=== PATIENT | female | born 1935 | race Caucasian/White ===

== ENCOUNTER → 2017-03-07 | Outpatient (CLI) | payer MEDICARE, BC ==
[~2017-03-07] MED LIST: APIX2.5T PO; CALC1TAB12 PO; LEVO.075 PO; TYLE325T PO
[2017-03-07 10:49] LABS: AUTOMATED NEUTROPHIL # 4.6 TH/MM3 (1.8-7.7); BASOPHIL % 0.5 % (0.0-2.0); EOSINOPHIL # 0.1 TH/MM3 (0-0.4); EOSINOPHIL % 1.1 % (0.0-4.0); HEMO FLAGS DIFF FINAL; LYMPH % 22.1 % (9.0-44.0); LYMPHOCYTE # 1.5 TH/MM3 (1.0-4.8); MEAN CELL VOLUME 94.6 FL (80.0-100.0); MEAN CORPUSCULAR HEMOGLOBIN 31.9 PG (27.0-34.0); MEAN CORPUSCULAR HGB CONC 33.7 % (32.0-36.0); MONO % 9.1 % (0.0-8.0); NEUT % 67.2 % (16.0-70.0); PLATELET COUNT 174 TH/MM3 (150-450); RED BLOOD COUNT 4.76 MIL/MM3 (4.00-5.30); RED CELL DISTRIBUTION WIDTH 13.4 % (11.6-17.2); WHITE BLOOD COUNT 6.8 TH/MM3 (4.0-11.0)
[2017-03-07 11:19] LABS: ANION GAP 9 MEQ/L (5-15); AST (GOT) 18 U/L (15-37); BICARBONATE 27.2 MEQ/L (21.0-32.0); BLOOD UREA NITROGEN 13 MG/DL (7-18); CHLORIDE 103 MEQ/L (98-107); GLOMERULAR FILTRATION RATE 74 ML/MIN (>89); GLUCOSE,FASTING 100 MG/DL (74-99); POTASSIUM 4.6 MEQ/L (3.5-5.1); SODIUM (NA) 139 MEQ/L (136-145)
[2017-03-07 11:20] LABS: ALT (GPT) 18 U/L (10-53); THYROXINE (T4) 11.5 MCG/DL (4.8-13.9)
[2017-03-07 11:30] LABS: ALKALINE PHOSPHATASE 70 U/L (45-117); HDL CHOLESTEROL 68.9 MG/DL (40.0-60.0); LDL CHOLESTEROL 103 MG/DL (0-99); TOTAL BILIRUBIN ADULT 0.8 MG/DL (0.2-1.0)
[2017-03-07 15:31] LABS: HEMOGLOBIN A1b 0.8 %; HEMOGLOBIN Ao 86.2 %; HEMOGLOBIN F 0.8 %; HEMOGLOBIN LA1C 1.9 %; HEMOGLOBIN P3 3.4 %
== END ==
LOC: CPRE 09:50
PROVIDERS: ATTEND Internal Medicine
DX: R73.09 Other abnormal glucose (principal); E03.9 Hypothyroidism, unspecified; E78.00 Pure hypercholesterolemia, unspecified
CPT/HCPCS: 80053; 80061; 83036; 84436; 84443; 85025

== ENCOUNTER → 2017-03-07 | Outpatient (CLI) | payer MEDICARE, OTHER, BC ==
[2017-03-07 11:01] LABS: INTERNATIONAL NORMALIZED RATIO 0.9 RATIO; PROTHROMBIN TIME - PATIENT 10.4 SEC (9.8-11.6)
[2017-03-07 11:20] LABS: BACTERIA, URINE MOD /hpf; BLOOD, URINE TRACE (NEG); COMMENT (UR) CULTURE INDICATED; CULTURE IF INDICATED CULTURE INDICATED; GLUCOSE,URINE NEG (NEG); KETONE, URINE NEG (NEG); NITRITE,URINE POS (NEG); SQUAMOUS EPITHELIAL CELL URINE 2 /hpf (0-5); URINE COLOR LIGHT-YELLOW (YELLW/STRAW)
--- NOTE | 2017-03-07 11:42 | RADRPT ---
EXAM DATE/TIME: 03/07/2017 11:07 [place] COMPARISON: No previous studies available for comparison. INDICATIONS : Evaluate for pneumonia, pneumothorax, and communicable disease. Preop for knee arthroscopy. MEDICAL HISTORY : Pulmonary emboli. SURGICAL HISTORY : None. ENCOUNTER: Initial ACUITY: 1 day PAIN SCORE: 0/10 LOCATION: Bilateral chest FINDINGS: PA and lateral views of the chest demonstrate right basilar subsegmental atelectasis versus scarring. Left lung clear. Heart normal in size. The cardiomediastinal contours are unremarkable. Osseous str uctures are intact. CONCLUSION: Right basilar subsegmental atelectasis. Karthik Huff MD on March 07, 2017 at 11:33 Board Certified Radiologist. This report was verified electronically.
--- NOTE | 2017-03-08 21:09 | EKG ---
Date Performed: 03/07/2017 Time Performed: 10:49:06 PTAGE: 81 years EKG: Sinus rhythm WITH OCCASIONAL VENTRICULAR PREMATURE COMPLEXES MINIMAL VOLTAGE CRITERIA FOR LVH, CONSIDER NORMAL VA RIANT BORDERLINE ECG NO PREVIOUS TRACING DOCTOR: Rod Zavala Interpretating Date/Time 03/08/2017 21:08:29
== END ==
LOC: CPRE 09:39
PROVIDERS: ATTEND Orthopaedic Surgery
DX: Z01.810 Encounter for preprocedural cardiovascular examination (principal); Z01.811 Encounter for preprocedural respiratory examination; Z01.812 Encounter for preprocedural laboratory examination; Z79.01 Long term (current) use of anticoagulants; S83.241A Other tear of medial meniscus, current injury, right knee, initial encounter; X58.XXXA Exposure to other specified factors, initial encounter; R94.31 Abnormal electrocardiogram [ECG] [EKG]; R82.99 Other abnormal findings in urine; R73.09 Other abnormal glucose; E03.9 Hypothyroidism, unspecified; E78.00 Pure hypercholesterolemia, unspecified
CPT/HCPCS: 36415; 71020; 80053; 80061; 81001; 83036; 84436; 84443; 85025; 85610; 86403; 87086; 93005

== ENCOUNTER → 2017-03-18 | Day surgery (SDC) | payer MEDICARE, OTHER, BC ==
--- NOTE | 2017-03-08 17:32 | MH ---
cc: MABLE REYES M.D. DATE OF ADMISSION 03/18/2017 ADMISSION DIAGNOSIS Medial and lateral meniscus tear of the right knee, chondromalacia right knee, effusion right knee, synovitis right knee and pain of the right knee. HISTORY OF THE PRESENT ILLNESS The patient is an 81-year-old white female who has experienced pain of the right knee of longstanding duration. Her history extends back almost 6 years at which time she sustained a twisting stress of her right knee while shopping and living in the [facility]. She did undergo orthopedic evaluation at that time and suggests she was diagnosed as having a meniscal type injury for which she did receive a cortisone injection and noted complete resolution of her pain thereafter. Over the following years she seemed be doing reasonably well until the past few months when she was stepping off of a curb and sustained a sharp pain about the medial aspect of her knee with some degree of swelling associated. She conformed to conservative management which included ice application and Tylenol for pain relief. Because her symptoms persisted she was later seen by her primary care physician Dr. Lyle who ordered an MRI scan of the right knee the results of which identified a horizontal tear involving the posterior horn and body of the medial meniscus with body remnant being subluxed to the medial joint margin as well as extensive degenerative tearing and maceration of radial configuration of the posterior horn and body of the lateral meniscus. A partially bipartite patella with only minimal localized chondromalacia, mild to moderate chondral thinning throughout the medial and lateral compartments and moderate effusion with moderate synovitis. The patient was subsequently seen by the undersigned physician at which time she reported lingering soreness about her right knee which limited her routine activities which had included playing golf and conforming to yoga exercises. She had been limiting her use of Tylenol reporting that she was on Eliquis for history of pulmonary embolus as related to a history of Leiden V deficiency factor. At the time of her original office evaluation findings and treatment options were reviewed. The pros and cons of continuing with conservative management versus operative intervention that would involve arthroscopic surgery was outlined with emphasis being made that the decision to proceed with surgery would be left entirely to the patient's discretion. The patient considered her options in this regard and later returned to the office in follow-up disposition indicating that she was desirous of proceeding with surgery as had previously been discussed and in compliance with her wishes she has been scheduled for admission at this time in order that the above be accomplished. PAST MEDICAL HISTORY Her past medical history, hospitalizations and surgeries have included: 1. Bilateral bunionectomy. 2. Partial left mastectomy followed by radiation therapy. 3. Left ovarian cyst excision with postoperative complication involving hemorrhage that did require additional surgery/ 4. Tonsillectomy. 5. Bilateral cataract excision with intraocular lens implants. 6. Colonoscopy. 7. Medical management for pulmonary embolus. 8. Insertion of a bladder sling. The patient's medical illnesses include: 1. Hypothyroidism. 2. Factor V Leiden deficiency. 3. Osteopenia. 4. History of aortic aneurysm. MEDICATIONS Her current medications: 1. Synthroid 75 mcg daily. 2. Eliquis 2.5 mg twice daily. 3. Calcium 600 mg daily. 4. Vitamin D 1000 units daily. 5. B12 1000 mcg two times weekly. 6. Tylenol p.r.n. ALLERGIES The patient denies any known drug allergies. REVIEW OF SYSTEMS She wears glasses occasionally for reading purposes. She has had a history of migraine headaches but this has subsequently resolved. No seizure or syncope. No sinus congestion or epistaxis. Auditory acuity intact. Occasional tinnitus. No bleeding gums or dysphagia. Denies cough, shortness of breath or tuberculosis. There is a history of pneumonia. No angina or heart disease. Her appetite is good. Bowel movements regular. No hepatitis, gallbladder disease, ulcers or hemorrhoids. She has had urinary tract infection. No kidney stones. No fractures. No psychiatric illness. Her remaining review of systems is unremarkable and noncontributory. FAMILY HISTORY The patient has been a for 11 years. Her at 71 years of age with a history of liver cancer. She has four sons and one daughter all described as being in good health. Family history is positive for hypertension, diabetes, heart disease, lung, breast and colon cancer. 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 She denies active use of tobacco for more than 30 years but had been a less than one-pack per day user for approximately 20 years prior to that time. Ethanol consumption on an occasional basis. PHYSICAL EXAMINATION VITAL SIGNS: Height 5 feet 4 inches, weight 175 pounds. GENERAL: An alert, oriented, responsive 81-year-old white female who sits quietly upon examination table with no obvious distress. HEENT: Pupils are equally round and reactive to light. Extraocular movements full. Sclerae clear. External nares clear. External auditory canals clear. Dental intact. Mucous membranes pink and moist. Pharynx clear. NECK: Supple. Active range of motion without appreciable pain. Carotid pulse palpable bilaterally. Trachea midline. Thyroid without enlargement. LUNGS: Clear to auscultation and percussion. No CVA tenderness. No discomfort throughout the dorsal lumbar spine. HEART: Regular rhythm. No murmur or gallop. ABDOMEN: Soft, nontender. Bowel sounds present. PELVIC: Per primary care physician. EXTREMITIES: Right knee there is a fullness about the right knee consistent with some redundancy of soft tissue and mild intra-articular effusion. Minimal medial joint line tenderness. Apprehension and compression sign negative. Limited mobility towards the extreme of flexion with minimal discomfort associated, no crepitation or instability. No collateral ligamentous laxity. Liss test and drawer sign negative. Pivot shift and Matthew sign are positive for medial compartment pain. Straight-leg raising negative at 80 degrees. Satisfactory mobility of the right hip with no associated pain. Independent gait. NEUROLOGIC: Cranial nerves II-XII grossly intact. IMPRESSION Medial and lateral meniscus tear of the right knee, chondromalacia right knee, effusion right knee, synovitis right knee, pain right knee. PLAN Arthroscopic surgery and possible arthrotomy right knee. The nature of the planned surgical procedure, the potential complications and risks associated, the expectations of surgery and the consent form were thoroughly reviewed with the patient prior to admission to the hospital. Amy has indicated her full understanding regarding all of the above and given consent to proceed with treatment as outlined. Medical evaluation and clearance for surgery will be completed by her primary care physician Dr. Bruna Lyle. MD MILES Schwartz/DARREN /4:42 PM /4:54 PM
[~2017-03-18] VITALS: Ht 162.6 cm; Wt 79.1 kg
[~2017-03-18] MED LIST changes: +ACETAMINOPHEN 1000 MG/100 ML 100 ML IV ONE; +ACETAMINOPHEN/HYDROcodone 325 MG/5 MG TAB PO PRN; +CHLORHEXIDINE GLUCONATE 2 % 1 PACK (2 CLOTHS) TOPICAL PRN; +DEXAMETHASONE SOD PHOS 4 MG/ML VIAL IV ONE; +DO NOT ADM ANY ANTICOAGULANT DRUGS PRN; +FAMOTIDINE 20 MG/2 ML VIAL ONE; +INSULIN HUMAN REGULAR 1,000 UNITS/10 ML VIAL SQ PRN; +KETOROLAC TROMETHAMINE 30 MG/ML (IVP) VIAL IV PUSH ONE; +LACTATED RINGER'S 1000 ML INJ 1,000 ML IV ONE; +LACTATED RINGER'S 1000 ML IV PRN; +LIDOCAINE HCL 1% PF 5 ML AMPULE OTHER ONE; +LIDOCAINE HCL 2% 50 ML VIAL ONE; +METOPROLOL TARTRATE 25 MG TAB PO PRN; +MIDAZOLAM HCL 2 MG/2 ML VIAL IV ONE; +MORPHINE SULFATE 8 MG/ML INJ IM PRN; +ONDANSETRON HCL 4 MG/2 ML VIAL IV PUSH ONE; +POVIDONE IODINE 5% (ANTISEPSIS KIT) 4 APPLICATIONS EACH NARE PRN; +POVIDONE IODINE 7.5% SCRUB 118 ML BOTTLE TOPICAL SCH; +PROMETHAZINE INJ 25 MG/ML VIAL IM PRN; +PROPOFOL 200 MG/20 ML AMP IV ONE; +SODIUM CHLORID 0.9% 500 ML IV PRN; +TRIAMCINOLONE ACETONIDE 40 MG/ML VIAL ONE; +ceFAZolin 2 GM PREMIX 50 ML IV SCH; +ePHEDrine/NS 25 MG/5 ML SYR IV ONE
[2017-03-18 09:25] VITALS: BP 117/61; PULSE 75; RESP 18; O2SAT 98
--- NOTE | 2017-03-18 16:57 | MP ---
cc: MABLE WILLSON DATE OF SURGERY 03/18/17 PREOPERATIVE DIAGNOSIS 1. Medial and lateral meniscus tear of the right knee 2. Chondromalacia right knee 3. Effusion right knee 4. Synovitis right knee 5. Pain of the right knee. POSTOPERATIVE DIAGNOSIS 1. Medial and lateral meniscus tear of the right knee 2. Chondromalacia right knee 3. Effusion right knee 4. Synovitis right knee 5. Pain of the right knee. PROCEDURE 1. Partial medial and lateral meniscectomy right knee 2. Chondroplasty of the patellofemoral joint and the medial compartment. SURGEON Dev Willson MD ANESTHESIA General by LMA FORMAT Following induction of satisfactory general anesthesia by LMA insertion as completed per the Department of Anesthesia, examination of the right knee did reveal a satisfactory range of motion with no appreciable ligamentous instability. The extremity proper was positioned in the events assistant knee beverly, prepped with Betadine solution and draped into a sterile field in the routine manner. Prior to initiation of the actual procedure, the standard time-out protocol was completed, all parameters were appropriately addressed and confirmed by operating room personnel. Arthroscopic instrumentation was introduced through stab wound utilizing cannula with sharp and blunt trocar, the inflow irrigation by way of a medial suprapatellar portal, the arthroscope through a lateral parapatellar portal and a probe through a medial parapatellar portal. Examination of the suprapatellar pouch revealed prominent synovitis throughout the suprapatellar region within the patellofemoral articulation. Moderate degenerative changes were appreciated consistent with chondromalacia. Examination of the medial compartment revealed a degenerative tear involving the posterior horn of the medial meniscus, a pronounced degenerative process involving the femoral condyle and to a lesser degree the tibial plateau was noted with a subchondral defect within the central portion of the condylar region. There was some attenuation and fraying of the anterior cruciate ligament, but the majority of the structure was noted to be intact. Within the lateral compartment, a more pronounced tear of the lateral meniscus involving the body and posterior horn region was appreciated with associated chondromalacia along the adjacent articular surfaces. Utilizing a 3.8 mm resector through the medial portal, a partial medial meniscectomy was accomplished followed by a generalized chondroplasty of the medial compartment. Limited debridement throughout the intercondylar region of the fraying portion of the anterior cruciate ligament and the shaver was thereafter oriented into the lateral compartment where a more aggressive partial lateral meniscectomy was accomplished with limited debridement throughout the compartmental region. The shaver was thereafter oriented into the suprapatellar articulation where a generalized chondroplasty of the patellofemoral joint was accomplished. Upon completion of same, the joint space was thoroughly lavaged and suctioned dry. An intra-articular Kenalog lidocaine injection was completed. Portal sites were reapproximated with Steri-Strips over which Xeroform gauze and a bulky dry sterile dressing were placed. Anesthesia was discontinued. The patient thus transferred to a hospital stretcher and returned to the recovery room in satisfactory condition having tolerated her operative procedure well. Estimated blood loss was less than 10 mL. MD MILES Schwartz/ /8:30 AM /4:35 PM
== END | disposition home or self-care (01) ==
LOC: HSDC 05:08
PROVIDERS: ATTEND Orthopaedic Surgery
DX: S83.281A Other tear of lateral meniscus, current injury, right knee, initial encounter (principal); S83.241A Other tear of medial meniscus, current injury, right knee, initial encounter; M94.261 Chondromalacia, right knee; M65.9 Synovitis and tenosynovitis, unspecified
CPT/HCPCS: 01400; 29880; J0131; J0690; J1100; J1885; J2250; J2405; J3010; J3301; J7120